=== PATIENT | female | born 1950 | race Caucasian/White ===

== ENCOUNTER → 2017-03-21 14:58 | Outpatient (POV) | payer MEDICARE, SELFPAY | PROVIDERS: Visit Provider Nurse Practitioner Acute Care | DX: Z00.00 Encounter for general adult medical examination without abnormal findings (principal) ==

== ENCOUNTER 2020-08-15 06:09 | Emergency (ER) | payer MEDICARE, SELFPAY ==
--- NOTE | 2020-08-15 06:15 | XR_ITS ---
PROCEDURE INFORMATION: Exam: XR Right Wrist Exam date and time: 08/15/2020 6:15 AM Age: 70 years old Clinical indication: Injury or trauma; Fall; Fracture, traumatic injury; Closed fracture; Wrist; Right TECHNIQUE: Imaging protocol: XR Right wrist. Views: 3 or more views. AP, lateral and oblique views COMPARISON: No relevant prior studies available. FINDINGS: Bones/joints: Comminuted distal radius fracture with dorsal angulation of the distal fracture fragment, fracture may extend into the articular surface of the radiocarpal joint. Mildly displaced ulnar styloid avulsion. The osseous structures are demineralized. Normal alignment of carpal rows. Soft tissues: Normal. IMPRESSION: Distal radius and ulna fractures.
--- NOTE | 2020-08-15 06:16 | XR_ITS ---
PROCEDURE INFORMATION: Exam: XR Right Forearm Exam date and time: 08/15/2020 6:16 AM Age: 70 years old Clinical indication: Injury or trauma; Fall; Fracture, traumatic injury; Closed fracture; Wrist; Right TECHNIQUE: Imaging protocol: XR Right forearm. Views: 2 views. COMPARISON: No relevant prior studies available. FINDINGS: Bones/joints: The osseous structures are demineralized. Distal radius and ulna fractures are detailed under concurrent wrist report. Remainder of the radius and ulna appear intact. The elbow joint is unremarkable. Soft tissues: Edematous at the wrist. IMPRESSION: Distal radius and ulna fractures.
--- NOTE | 2020-08-15 06:22 | XR_ITS ---
PROCEDURE INFORMATION: Exam: XR Right Hand Exam date and time: 08/15/2020 6:22 AM Age: 70 years old Clinical indication: Injury or trauma; Fall; Fracture, traumatic injury; Closed fracture; Wrist; Right TECHNIQUE: Imaging protocol: XR Right hand. Views: 3 or more views. AP, lateral and oblique views COMPARISON: No relevant prior studies available. FINDINGS: Bones/joints: Distal radius and ulna fractures are detailed under concurrent wrist report. The osseous structures are demineralized. Degenerative changes of the 1st interphalangeal joint. No acute fracture or malalignment involving the hand. Soft tissues: Medial soft tissue edema at the wrist. IMPRESSION: Distal radius and ulna fractures.
[2020-08-15 06:23] VITALS: BP 174/94; PULSE 96; RESP 18; TEMP 36.9; O2SAT 96; BMI 17.6
--- NOTE | 2020-08-15 06:58 | HMH.EDUPEXT ---
ED Disposition Clinical Impression: Fracture of wrist Qualifiers: Encounter type: initial encounter Fracture type: closed Laterality: right Qualified Code(s): S62.101A - Fracture of unspecified carpal bone, right wrist, initial encounter for closed fracture Disposition: Home, Self-Care Condition on Discharge: Good Instructions: DI for Wrist Fracture Additional Instructions: wear splint and call ortho this am Referrals: Alfonso Dumont MD [Primary Care Provider] - Alan Valdez MD [Staff Physician] - - Critical Care Critical Care Time: No Attestation: On 08/15/20, the high probability of a clinically significant, sudden or life threatening deterioration of the following system(s) required my full and direct attention, intervention and personal management. The time I documented below is in addition to time spent performing reported procedures but includes the following listed in this critical care notation. Medical Decision Making - Medical Records Medical records reviewed: Yes: I reviewed the patient's medical records. - Devyn Inquiry Pt receiving controlled substance: No Vital Signs: 08/15/20 06:23 Temperature 98.5 F Temperature Source Oral Pulse Rate [Left] 96 H Respiratory Rate 18 Blood Pressure [Left Arm] 174/94 H Blood Pressure Mean [Left Arm] 120 Blood Pressure Source [Left Arm] Automatic Cuff Blood Pressure Position [Left Arm] Sitting 02 Sat by Pulse Oximetry 96 Oxygen Delivery Method Room Air - Lab Data Lab results reviewed: Yes: I reviewed the patient's lab results. Orders (Tests/Meds): ORDERS Category Date Time Status XR forearm RT 2V Stat Exams 08/15/20 06:16 Taken XR hand RT min 3V Stat Exams 08/15/20 06:22 Taken XR wrist RT min 3V Stat Exams 08/15/20 06:15 Taken - Radiology Data #1 Image(s): Forearm, Wrist, Hand Image Reviewed: Yes I reviewed the patient's radiology image Preliminary Findings: Abnormal Upper Extremity HPI - General Chief Complaint: Extremity Injury, Upper Stated Complaint: AO 08/15/20 03:00 injury right wrist Time Seen by Provider: 08/15/20 06:45 Mode of Arrival: Ambulatory Source of Information: Patient, Medical Record Limitations: No Limitations Description of Symptoms (Recalled from ER Triage Doc. by RN): Pt states she tripped and fell going to bathroom this AM and stopped herself with her right hand, pt has pain with deformity to right wrist. Pt denies head injury or LOC. Pulses and Cap refill WNL. Pt able to move all fingers, but not without pain. - History of Present Illness HPI narrative: trip injury this am with rt wrist injury complaint: injury to: right, wrist Onset (ago): hour(s) Other Extremity Injury: Right: wrist Other injuries: none Handedness: right Place: home Severity: moderate Context: fall Associated symptoms: denies other symptoms - Related Data Home Medications Medication Instructions Recorded Confirmed Amlodipine Besylate [Norvasc 5mg 5 mg PO DAILY 10/20/17 10/20/17 tablet] Buspirone HCl [Buspar 10mg 10 mg PO DAILY 10/20/17 10/20/17 tablet] Folic Acid [Folic Acid 1mg tablet] 1 mg PO DAILY 10/20/17 10/20/17 carvediloL [Carvedilol 12.5mg Tab] 12.5 mg PO DAILY 10/20/17 10/20/17 metHOTREXate sodium [metHOTREXate 2.5 mg PO DAILY 10/20/17 10/20/17 2.5mg Tablet] Previous Rx's Medication Instructions Recorded Amoxicillin/Potassium Clav 500 mg PO BID #20 tab 10/20/17 [Augmentin 500mg tab] Allergies Allergy/AdvReac Type Severity Reaction Status Date / Time atorvastatin [From LIPITOR] Allergy Mild Verified 10/20/17 13:33 hydrocodone [From LORTAB] Allergy Mild Verified 10/20/17 13:33 rosuvastatin [From CRESTOR] Allergy Unknown NA-SLEEPY Verified 10/20/17 13:33 sulfamethoxazole Allergy Unknown Verified 10/20/17 13:33 [From BACTRIM] trimethoprim [From BACTRIM] Allergy Unknown Verified 10/20/17 13:33 [facility] History - Hepatitis A Screen Drug use history?: No
[2020-08-15 07:18] VITALS: BP 168/92; PULSE 92; RESP 18; TEMP 36.9; O2SAT 96
== END 2020-08-15 07:25 | disposition home or self-care (01) ==
PROVIDERS: Emergency Provider Emergency Medicine; PCP Family Medicine
DX: S52.501A Unspecified fracture of the lower end of right radius, initial encounter for closed fracture (principal); S52.601A Unspecified fracture of lower end of right ulna, initial encounter for closed fracture; W01.0XXA Fall on same level from slipping, tripping and stumbling without subsequent striking against object, initial encounter; Y92.019 Unspecified place in single-family (private) house as the place of occurrence of the external cause; F17.210 Nicotine dependence, cigarettes, uncomplicated
CPT/HCPCS: 29125; 73090; 73110; 73130; 99282

== ENCOUNTER 2021-08-01 13:52 | Observation (INO) | payer MEDICARE, OTHER, SELFPAY ==
[2021-08-01] VITALS (29 sets, daily range): BP systolic 88–122; BP diastolic 38–69; PULSE 63–104; RESP 14–26; TEMP 36.4–37.1; O2SAT 97–100; BMI 21.4; BMI 35.8
--- NOTE | 2021-08-01 13:52 | ECG_ITS ---
APPROVED REPORT Exam: Resting ECG HR:69 bpm ECG Measurements Heart Rate 69 AXES OK 149 P 50 QRSd 80 QRS 33 QT 421 T 39 QTc 440 Conclusion SINUS RHYTHM NORMAL ECG UNCONFIRMED REPORT Electronically signed by : Krystian Edwards MD 08/03/2021 09:40:54
--- NOTE | 2021-08-01 14:12 | HMH.EDGENADL ---
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 The time I documented below is in addition to time spent performing reported procedures but includes the following listed in this critical care notation. Total Critical Care Time: 60 Vital system(s) involved:: Shock (Hemorrhage) My critical care processes included: Assessment & monitoring of V/S, Initial and Re-exams, Data Review/Interpretation, Coordinating Care, Medication Orders and management, Documentation Medical Decision Making - Devyn Inquiry Pt receiving controlled substance: No Vital Signs: 08/01/21 13:47 08/01/21 13:55 08/01/21 14:06 Temperature 98.7 F Temperature Source Rectal Pulse Rate Pulse Rate [Radial] 75 Respiratory Rate 26 H 18 18 TAR Vitals Timing Blood Pressure 94/57 L 105/55 L Blood Pressure [Right Arm] 94/57 L Blood Pressure Mean 66 69 Blood Pressure Mean [Right Arm] 69 Blood Pressure Position Blood Pressure Position [Right Arm] Sitting 02 Sat by Pulse Oximetry 97 Oxygen Delivery Method Nasal Cannula Oxygen Flow Rate (LPM) 3 08/01/21 15:23 08/01/21 15:30 08/01/21 15:49 Temperature Temperature Source Pulse Rate Pulse Rate [Radial] Respiratory Rate 16 15 16 TAR Vitals Timing Blood Pressure 94/44 L 103/46 L 98/40 L Blood Pressure [Right Arm] Blood Pressure Mean 52 64 69 Blood Pressure Mean [Right Arm] Blood Pressure Position Blood Pressure Position [Right Arm] 02 Sat by Pulse Oximetry 100 Oxygen Delivery Method Nasal Cannula Oxygen Flow Rate (LPM) 3 08/01/21 16:22 08/01/21 16:52 08/01/21 18:00 Temperature Temperature Source Pulse Rate 80 72 74 Pulse Rate [Radial] Respiratory Rate 17 15 16 TAR Vitals Timing Blood Pressure 101/44 L 100/41 L 108/53 L Blood Pressure [Right Arm] Blood Pressure Mean 61 56 67 Blood Pressure Mean [Right Arm] Blood Pressure Position Blood Pressure Position [Right Arm] 02 Sat by Pulse Oximetry 100 100 100 Oxygen Delivery Method Nasal Cannula Nasal Cannula Oxygen Flow Rate (LPM) 3 3 08/01/21 18:30 08/01/21 18:47 08/01/21 18:54 Temperature 98.7 F Temperature Source Oral Pulse Rate 66 64 68 Pulse Rate [Radial] Respiratory Rate 14 16 20 TAR Vitals Timing Pre-Blood Vitals Start Vitals Blood Pressure 99/54 L 98/53 L Blood Pressure [Right Arm] Blood Pressure Mean 69 68 Blood Pressure Mean [Right Arm] Blood Pressure Position Sitting Sitting Blood Pressure Position [Right Arm] 02 Sat by Pulse Oximetry 100 98 100 Oxygen Delivery Method Nasal Cannula Oxygen Flow Rate (LPM) 3 08/01/21 18:58 08/01/21 19:03 08/01/21 19:15 Temperature Temperature Source Pulse Rate 63 104 H 69 Pulse Rate [Radial] Respiratory Rate 18 18 18 TAR Vitals Timing Blood Pressure 95/52 L 108/66 L 111/69 Blood Pressure [Right Arm] Blood Pressure Mean 66 80 83 Blood Pressure Mean [Right Arm] Blood Pressure Position Blood Pressure Position [Right Arm] 02 Sat by Pulse Oximetry 100 100 100 Oxygen Delivery Method Oxygen Flow Rate (LPM) 08/01/21 19:23 08/01/21 19:38 08/01/21 19:51 Temperature Temperature Source Pulse Rate 70 66 70 Pulse Rate [Radial] Respiratory Rate 18 16 16 TAR Vitals Timing Blood Pressure 106/65 L 109/67 L 113/63 Blood Pressure [Right Arm] Blood Pressure Mean 78 81 79 Blood Pressure Mean [Right Arm] Blood Pressure Position Blood Pressure Position [Right Arm] 02
--- NOTE | 2021-08-01 14:17 | XR_ITS ---
PROCEDURE INFORMATION: Exam: XR Chest Exam date and time: 08/01/2021 2:20 PM Age: 71 years old Clinical indication: Shortness of breath; Additional info: Weakness, SOA TECHNIQUE: Imaging protocol: XR of the chest. Views: 1 view. COMPARISON: CR CXR CHEST(2 VIEWS-NOT PORTABLE) 09/09/2016 7:51 PM FINDINGS: Airway: Patent Lungs: COPD/emphysema is appreciated. Mild pulmonary emphysema. Diffuse chronic interstitial prominence. No acute interstitial or airspace disease. Pleural spaces: Unremarkable. No pleural effusion. No pneumothorax. Heart/Mediastinum: The heart is moderately enlarged. Vasculature: Calcified aortic knob. Bones/joints: No acute skeletal abnormality or aggressive osseous lesion. Multilevel kyphoplasty changes in the thoracic spine. IMPRESSION: 1. No acute thoracic pathology. 2. Consider COPD exacerbation in the appropriate clinical setting.
--- NOTE | 2021-08-01 14:17 | PC.NURSE ---
Rn and Tech in room getting pt settled, urine, labs, vitals, triage
--- NOTE | 2021-08-01 14:19 | PC.NURSE ---
patient used bedpan and had a dark colored bowel movement
[2021-08-01 14:22] LABS: Occult Blood,Stool Positive (Negative)
--- NOTE | 2021-08-01 14:37 | PC.NURSE ---
Bella with lab at
[2021-08-01 15:17] LABS: Coronavirus 19, PCR Not Detected (NotDetected); Influenza A, PCR Not Detected (NotDetected); Influenza B, PCR Not Detected (NotDetected)
[2021-08-01 15:24] LABS: Basophils # 0.1 K/mm3 (0-0.2); Basophils % 1.3 % (0.1-2.0); Eosinophils # 0.1 K/mm3 (0.0-0.4); Eosinophils % 0.6 % (0.1-12.0); Hematocrit 26.1 % (37.0-47.0); Hemoglobin 8.1 g/dL (12.2-16.2); Lymphocytes # 1.1 K/mm3 (0.7-4.5); Mean Corpuscular HGB Conc 30.9 g/dL (31.8-35.4); Mean Corpuscular Hemoglobin 31.9 pg (27.0-31.2); Mean Corpuscular Volume 103.2 fl (81-99); Mean Platelet Volume 13.1 fl (7.4-10.4); Monocytes # 0.4 K/mm3 (0.1-1.0); Monocytes % 4.2 % (1.7-9.3); Neutrophils # 7.7 K/mm3 (1.8-7.8); Red Blood Count 2.53 M/mm3 (4.20-5.40); Red Cell Distribution Width 17.3 % (11.5-17.5); White Blood Count 9.4 K/mm3 (4.8-10.8)
[2021-08-01 15:33] LABS: Platelet Count 26 K/mm3 (142-424)
--- NOTE | 2021-08-01 15:37 | CT_ITS ---
PROCEDURE INFORMATION: Exam: CT Abdomen And Pelvis Without Contrast Exam date and time: 08/01/2021 6:13 PM Age: 71 years old Clinical indication: Nausea and vomiting; Additional info: Abd pain/ gi bleed seen in stool // she was given oral contrast-- we waited 1 1/2 hours since given and there was still some in the stomach but not much in her bowel - 30ml gastrograffin given. TECHNIQUE: Imaging protocol: Computed tomography of the abdomen and pelvis without contrast. Radiation optimization: All CT scans at this facility use at least one of these dose optimization techniques: automated exposure control; mA and/or kV adjustment per patient size (includes targeted exams where dose is matched to clinical indication); or iterative reconstruction. Other contrast: Oral, gastrograffin , 30ml; COMPARISON: ABDPELW CT ABD PELVIS W/ CONTRAST 02/26/2016 9:49 AM FINDINGS: Lungs: Mild scarring and atelectasis in the lower lungs. Mild centrilobular emphysema. Heart: Small pericardial effusion. Coronary artery calcifications. Liver: Interval development of innumerable hepatic masses. Gallbladder and bile ducts: Gallbladder is absent. Pancreas: There appears to be a mass lesion in the pancreatic groove. Spleen: Normal. No splenomegaly. Adrenal glands: Normal. No mass. Kidneys and ureters: Normal. No hydronephrosis. Stomach and bowel: Mild sigmoid diverticulosis without diverticulitis. Appendix: No evidence of appendicitis. Intraperitoneal space: There are peritoneal nodules in the anterior abdomen example image 57 series 3. These could be abnormal lymph nodes or omental metastases. 15 mm nodule image 58 series 3, 7 mm and 9 mm peritoneal deposits on image 57 series 3. Vasculature: Unremarkable. No abdominal aortic aneurysm. Lymph nodes: Unremarkable. Urinary bladder: Unremarkable as visualized. Reproductive: Status post hysterectomy. Bones/joints: T12 kyphoplasty. Soft tissues: Unremarkable. IMPRESSION: 1. There appears to be a mass lesion in the pancreatic groove. Pancreatic primary malignancy is more likely than duodenal. 2. Soft tissue nodules in the omentum are worrisome for peritoneal metastatic disease. 3. Interval development of innumerable hepatic masses. This is worrisome for metastatic disease. 4. Small pericardial effusion.
[2021-08-01 15:39] LABS: Chloride 102 mmol/L (98-107); Sodium 139 mmol/L (136-145)
[2021-08-01 15:42] LABS: Alanine Aminotransferase 49 U/L (12-78); Alkaline Phosphatase 219 U/L (38-126); Aspartate Amino Transferase 109 U/L (14-36); Bilirubin,Total 0.9 mg/dl (0.2-1.3); Blood Urea Nitrogen 31 mg/dl (7-17); Calcium 8.4 mg/dl (8.4-10.2); Creatinine Clearance Estimated 41 mL/min (50-200); Estimated Glomerular Filt Rate 49 ml/min (>60); GFR (African American) 59 ML/MIN (>60); Glucose 174 mg/dl (74-100); Lipase 151 U/L (23-300)
[2021-08-01 15:43] LABS: Albumin Level 2.8 g/dl (3.5-5.0); Albumin/Globulin Ratio 1.2 (1.1-1.8); Globulin 2.3 g/dL (1.3-3.2); Total Protein,Serum 5.1 g/dl (6.3-8.2)
--- NOTE | 2021-08-01 15:46 | PC.NURSE ---
Dr. Hamilton speaking with Dr. Edwards
--- NOTE | 2021-08-01 16:15 | PC.NURSE ---
Spouse at BS
[2021-08-01 16:34] LABS: Carbon Dioxide 26 mmol/L (22.0-30.0)
--- NOTE | 2021-08-01 16:45 | HMH.ITSTN ---
called when order put in- CT is with oral contrast only. Spoke to Mariella and they are giving her the contrast to drink at 3:37pm and are to call when finished. We called to check if she was done at 4:15pm spoke to Mariella again and she was about half way done. Called at 4:40 and Mariella called me back said she just drank the last of it at 4:45pm, I advised we will scan her in 1 1/2 hours per protocol. Delay due to patient drinking contrast.
--- NOTE | 2021-08-01 17:16 | PC.NURSE ---
ED MD at speaking with patient and family regarding POC update
--- NOTE | 2021-08-01 18:00 | PC.NURSE ---
ED MD at speaking with patients spouse regarding POC
--- NOTE | 2021-08-01 18:12 | PC.NURSE ---
patient to CT with fork lift technician by dali
--- NOTE | 2021-08-01 18:17 | PC.NURSE ---
pt returned from CT with product support technician by dali
--- NOTE | 2021-08-01 18:35 | PC.NURSE ---
Christen Adam, RN at
[2021-08-01 18:36] LABS: Troponin I 0.34 ng/ml (0.00-0.034)
[2021-08-01 18:43] LABS: Activated Partial Thrombo Time 38.2 seconds (22.8-30.6)
[2021-08-01 18:44] LABS: INR > 8.00 (0.9-1.1)
--- NOTE | 2021-08-01 18:57 | PC.NURSE ---
ED doctor on phone with Dr. Edwards
--- NOTE | 2021-08-01 19:13 | PC.NURSE ---
ED doctor on phone with Dr. Edwards
--- NOTE | 2021-08-01 19:20 | PC.NURSE ---
spoke with Prema at [facility], there are no beds, patient was placed on waiting list. Hospitalist will call back
--- NOTE | 2021-08-01 19:30 | PC.WOUNDNOTE ---
spoke with Seble @ [facility] hospitalist to call back, no bed available at this time but will be put on wait list
--- NOTE | 2021-08-01 19:51 | PC.NURSE ---
ED doctor on phone with [facility]
--- NOTE | 2021-08-01 20:10 | PC.NURSE ---
lab staff called platelets are ready, first unit of blood is transfusing
--- NOTE | 2021-08-01 21:14 | PC.NURSE ---
patient up to floor via stretcher @ this time.
[2021-08-02] VITALS (17 sets, daily range): BP systolic 92–115; BP diastolic 47–68; PULSE 69–110; RESP 12–18; TEMP 36.3–36.7; O2SAT 90–100
[2021-08-02 04:29] LABS: Basophils # 0.1 K/mm3 (0-0.2); Basophils % 1.2 % (0.1-2.0); Eosinophils # 0.1 K/mm3 (0.0-0.4); Eosinophils % 0.5 % (0.1-12.0); Hematocrit 35.5 % (37.0-47.0); Lymphocytes # 1.4 K/mm3 (0.7-4.5); Lymphocytes % 14.3 % (10-50); Mean Corpuscular Hemoglobin 31.7 pg (27.0-31.2); Mean Corpuscular Volume 95.9 fl (81-99); Mean Platelet Volume 12.1 fl (7.4-10.4); Monocytes # 0.4 K/mm3 (0.1-1.0); Monocytes % 4.6 % (1.7-9.3); Neutrophils # 7.5 K/mm3 (1.8-7.8); Neutrophils % 79.4 % (37.0-80.0); Red Cell Distribution Width 17.8 % (11.5-17.5); White Blood Count 9.4 K/mm3 (4.8-10.8)
[2021-08-02 04:38] LABS: Chloride 105 mmol/L (98-107)
[2021-08-02 04:39] LABS: Potassium 3.7 mmoL/L (3.5-5.1); Sodium 141 mmol/L (136-145)
[2021-08-02 04:41] LABS: Hemoglobin 11.7 g/dL (12.2-16.2); Platelet Count 27 K/mm3 (142-424)
[2021-08-02 04:42] LABS: Anion Gap 8.7 mEq/L (5-15); Blood Urea Nitrogen 32 mg/dl (7-17); Calcium 8.3 mg/dl (8.4-10.2); Carbon Dioxide 31 mmol/L (22.0-30.0); Creatinine Clearance Estimated 58 mL/min (50-200); Estimated Glomerular Filt Rate 40 ml/min (>60); GFR (African American) 49 ML/MIN (>60); INR 1.48 (0.9-1.1); Prothrombin Time 16.2 seconds (10.1-12.5)
[2021-08-02 04:55] LABS: Glucose 126 mg/dl (74-100)
--- NOTE | 2021-08-02 07:54 | PC.NURSE ---
Pt tolerated blood and platelet transfusion. BP has been soft. Pt has remained on 2-3L O2 NC this shift. She is on 2L O2 NC at home. Has c/o nausea x1 and chronic back pain. Family has remains at bedside. Pt states she doesn't know if she wants to move aggressively with care. Pt remains on wait list at [facility] and . No other concerns. Will continue to monitor.
--- NOTE | 2021-08-02 11:36 | HMH.PHAINT ---
MEDICATION RECONCILIATION COMPLETED ON PATIENT USING EXTERNAL FILL HISTORY FROM PHARMACY.
--- NOTE | 2021-08-02 11:39 | HMH.PHAVTE ---
[facility] Pharmacy VTE Monitoring - Patient Demographics Admission date: 08/01/21 Report Date: 08/02/21 Time: 11:39 Allergies/Adverse Reactions: Patient Allergies atorvastatin [From LIPITOR] Allergy (Mild, Verified 10/20/17 13:33) hydrocodone [From LORTAB] Allergy (Mild, Verified 10/20/17 13:33) rosuvastatin [From CRESTOR] Allergy (Unknown, Verified 10/20/17 13:33) NA-SLEEPY sulfamethoxazole [From BACTRIM] Allergy (Unknown, Verified 10/20/17 13:33) trimethoprim [From BACTRIM] Allergy (Unknown, Verified 10/20/17 13:33) Height: 1.63 m Weight: 95.2 kg Patient Problems: Current Active Problems 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 (Acute) Coagulopathy (Acute) Upper gastrointestinal bleed (Acute) Thrombocytopenia (Acute) Hypokalemia (Acute) Hemorrhagic shock (Acute) - VTE Risk Labs: VTE Related Lab Results Hgb 11.7 g/dL (12.2-16.2) L D 08/02/21 04:20 Hct 35.5 % (37.0-47.0) L 08/02/21 04:20 Plt Count 27 K/mm3 (142-424) L* 08/02/21 04:20 PT 16.2 seconds (10.1-12.5) H 08/02/21 04:20 INR 1.48 (0.9-1.1) H 08/02/21 04:20 APTT 38.2 seconds (22.8-30.6) H 08/01/21 17:58 BUN 32 mg/dl (7-17) H 08/02/21 04:20 Creatinine 1.30 mg/dl (0.52-1.04) H 08/02/21 04:20 Estimated Creat Clear 58 mL/min (50-200) 08/02/21 04:20 VTE Risk Level: Moderate Risk - Prophylaxis VTE Prophylaxis Ordered?: Yes Types of VTE Prophylaxis: TEDS Knee High Location of Applied Device: Bilateral Lower Extremeties
--- NOTE | 2021-08-02 13:52 | HMH.HP ---
*Admission Date: 08/01/21 *Chief complaint: Weakness and fatigue *History of present illness: 71-year-old white female who normally sees Dr. Dumont, it has not seen him for 3 to 4 years, who over the past 2 months has had increasing problems with weight loss, fatigue, abdominal pain and anorexia. This started in April. In March she saw her bag turner, Dr. Aragon at [facility] and she reported that he was happy with her blood pressure and labs. In April she began to have the symptoms. She had a syncopal episode on the admission and came to the emergency department. I appreciate thorough ER work-up and documentation -- briefly, patient found to have pancreas mass and signs and symptoms consistent with widespread metastasis into liver and omentum, coagualopathy, anemia and thrombocytopenia ER work-up involved discussing case with tertiary care center but family in the meantime decided that given the poor prognosis of disease they would opt for no treatment and we elected to admit her to [facility] for stabilization, hospice consultation and further evaluation as indicated. [facility] History I have reviewed the patient's past medical history: Yes Medical History: Reports:: Hypertension Denies:: Cancer, Diabetes Mellitus Type 1, Diabetes Mellitus Type 2, Internal Pacemaker, MRSA *Have you ever received a pneumonia vaccine?: No *Have you received a flu vaccine this season?: No Other Medical History: Reports: Anemia Other Surgeries: Yes: Cholecystectomy, Hysterectomy-Total. No: Pacemaker - *Social History Smoking Status: Current every day smoker Tobacco Type: cigarettes # Packs/Day (cigarettes): 1 Alcohol Intake: never *Occupational Status:: retired *Travel in the last 8 weeks: None Family Hx:: Anemia, Bleeding Disorder, Cancer, Heart Attack, Hypertension, Stroke Review of Systems - Review of Systems Review of systems:: pertinent systems reviewed and negative unless documented below - Constitutional Reports anorexia, Reports fatigue, Reports lack of energy, Reports malaise, Reports weight loss - *Musculoskeletal Reports back pain, Reports body aches, Reports neck pain - *Neurologic Reports weakness, Denies localized weakness, Denies numbness Meds Home Medications Medication Instructions Recorded Confirmed Type Amlodipine Besylate [Norvasc 5mg 5 mg PO DAILY 10/20/17 08/02/21 History tablet] carvediloL [Carvedilol 12.5mg Tab] 12.5 mg PO BID 10/20/17 08/01/21 History Aspirin [Aspirin 81mg chewable 81 mg PO DAILY 08/01/21 08/01/21 History tab] Allergies Allergy/AdvReac Type Severity Reaction Status Date / Time atorvastatin [From LIPITOR] Allergy Mild Verified 10/20/17 13:33 hydrocodone [From LORTAB] Allergy Mild Verified 10/20/17 13:33 rosuvastatin [From CRESTOR] Allergy Unknown NA-SLEEPY Verified 10/20/17 13:33 sulfamethoxazole Allergy Unknown Verified 10/20/17 13:33 [From BACTRIM] trimethoprim [From BACTRIM] Allergy Unknown Verified 10/20/17 13:33 Exam Vital signs and Labs for Last 24 Hours: Temp Pulse Resp BP Pulse Ox 97.7 F 95 H 16 106/55 L 96 08/02/21 12:00 08/02/21 12:00 08/02/21 12:00 08/02/21 12:00 08/02/21 12:00 Laboratory Results - last 24 hr 08/01/21 14:05: Stool Occult Blood Positive A 08/01/21 15:05: WBC 9.4, RBC 2.53 L, Hgb 8.1 L, Hct 26.1 L, MCV 103.2 H, MCH 31.9 H, MCHC 30.9 L, RDW 17.3, Plt Count 26 L*, MPV 13.1 H, Neut % (Auto) 82.0 H, Lymph % (Auto) 12.0, [place] % (Auto) 4.2, Eos % (Auto) 0.6, Baso % (Auto) 1.3, Neut # (Auto) 7.7, Lymph # (Auto) 1.1, [place] # (Auto) 0.4, Eos # (Auto) 0.1, Baso # (Auto) 0.1 08/01/21 15:05: Sodium 139, Potassium 3.0 L, Chloride 102, Carbon Dioxide 26, Anion Gap 14.0, BUN 31 H, Creatinine 1.10 H, Estimated Creat Clear 41, Estimated GFR 49 L, Est GFR ( Amer) 59, Glucose 174 H, Calcium 8.4, Total Bilirubin 0.9, AST 109 H, ALT 49, Alkaline Phosphatase 219 H, Troponin I 0.30 H, Total Protein 5.1 L,
--- NOTE | 2021-08-02 18:04 | PC.NURSE ---
Morphine given for pain, pt tolerated well. Zofran given for nausea, pt tolerated well. VS stable and patient on 2LNC by end of shift. Oxygen was turned up to 4LNC in AM after patient was back in bed from using bedside commode for comfort. Patient able to be weaned throughout the day. [facility] updated twice about patient's condition. Patient stated she wanted to go home, hospice team consulted. No further complaints.
--- NOTE | 2021-08-02 20:23 | PC.NURSE ---
Received information that Pt was accepted for a bed at [facility]. Spoke with Bebeto and Hanh (Pt) and they both stated that Pt did not want to be transferred. Bebeto stated She told me that she did not want to be poked and have to go through all those treatments. If they send her there she will refuse everything. I would rather her stay there ([facility]). Spoke with Hanh she said I don't want to go. I want to stay here and be comfortable. I do not want any treatment. Hospice is coming tomorrow and I want to talk to them. Called [facility] at [phone] and notified them of the Pt's wishes. They stated Ok, I will let the charge nurse know. Notified [facility] charge nurse of Pts wishes as well. Notified Dr. Bell of Pts refusal. Still waiting for hospice to eval and admit at this time. No new orders at this time.
--- NOTE | 2021-08-03 07:47 | HMH.ACPN2 ---
Internal Medicine - PN: Subj *Date: 08/03/21 *Time: 07:47 Interval history: Patient feels worse today, and has had some intractable retching with biliary emesis. Lots of pain throughout her body especially in her thoracic back area. Exam Vital signs and Labs for Last 24 Hours: Temp Pulse Resp BP Pulse Ox 98.0 F 96 H 12 101/56 L 95 08/02/21 20:00 08/02/21 20:00 08/02/21 20:00 08/02/21 20:00 08/02/21 20:00 I & O for Last 24 hours: Intake & Output 07/31/21 08/01/21 08/02/21 08/03/21 11:59 11:59 11:59 11:59 Intake Total 760 / 760 1899 / 1899 Output Total 0 / 0 350 / 350 Balance 760 / 760 1549 / 1549 Weight 209 lb 14.081 oz Narrative: Patient is alert, appears anxious. Frail, poor air movement. Heart rate tachycardic. Abdomen soft, lots of diffuse pain with abdominal palpation. Extremities are cold in her hands and feet. 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 Hospice evaluation today to discuss further management, really placement may be an issue, patient has wished to go home but currently feels so badly that she is not sure she can. I will increase morphine doses, add Phenergan, Reglan for retching and Ativan for anxiety.
[2021-08-03 08:00] VITALS: BP 89/60; PULSE 110; RESP 6; RESP 8; TEMP 36.3; O2SAT 95
--- NOTE | 2021-08-03 08:57 | PC.NURSE ---
Pt c/o pain and is dry heaving. PRN phenergan and PRN morphine administered
[2021-08-03 12:17] VITALS: BMI 35.8
--- NOTE | 2021-08-03 15:56 | PC.NURSE ---
Contacted Hospice interventional radiology tech number to see when Hospice nurse was coming for consult. Awaiting call back from interventional radiology tech nurse.
--- NOTE | 2021-08-03 16:26 | PC.NURSE ---
Addendum entered by Iram Ross RN 08/03/21 16:33: In addition, pt has had 10-15 seconds of intermittent apnea this shift. Bilat knees are mottled as well. Original Note: 1106- Notified MD Solomon, oncall for MD Edwards of pt c/o pruritus, no erythema noted. TO for solu-medrol 80mg q8h PRN for pruritus. Orders carried out. Upon reassessment, pt no longer c/o pruritus. 1523- Notified MD Solomon of pt increase in secretions. TO for robinul and levsin given. Robinul IV administered, upon reassessment secretions have lessened but are still there. Will continue to monitor. Pt remains on 6LNC. o2 sats anywhere between 85-90%. Pt RR between 5-8 breaths per minute. Pt has been a q2h turn and has received PRN oral care. Pt is very delayed w/ responses but will answer questions w/ a yes or no . Pupils are pinpoint, but reactive. Bloody emesis at the beginning of this shift, PRN phenergan administered and it has subsided. Pt's abd is tender, bowel sounds active, but no BM noted. PRN morphine given per MAR for pain. Family remains at bedside, courtesy cart brought up for family. Still awaiting call back from on-call Hospice nurse. Will continue to monitor.
--- NOTE | 2021-08-03 16:45 | PC.NURSE ---
Hospice at bedside speaking to family
--- NOTE | 2021-08-03 18:46 | PC.NURSE ---
Per Katiana RN @ N- pt will be admitted as inpatient hospice. Stock Raiser notified. MD Edwards notified as well
[2021-08-03 20:12] VITALS: BP 84/57; PULSE 113; RESP 12; TEMP 36.8; O2SAT 94
--- NOTE | 2021-08-04 05:12 | HMH.DEATH ---
Pronouncement Note - Date and Time of Date of : 08/04/21 Time of : 05:00 - Additional Data Confirmation of : no pulse, no respirations, no heart sounds Family: at bedside Attending/PCP notified?: Yes Attending physician: Krystian Edwards MD Was code activated?: No Autopsy requested?: No worker's compensation claims examiner notified?: No Organ bank notified?: Yes Advance directives: Yes
--- NOTE | 2021-08-04 06:14 | PC.NURSE ---
Pt family called out to nurse at approx. 0450 I think that she is not breathing. Assessed Pt and did not appear to be breathing. Called Dr. Williamson and he pronounced at 0500 TOD. was called and he stated We want to use [facility]. Gary called and all information given. . [facility] notified of need to picker/puller the body. Dr. Solomon Notified of the . [facility] notified of the . Charge and Tour Agent notified as well. Post mortem care performed. Awaiting home at this time.
--- NOTE | 2021-08-05 08:17 | HMH.DEADDC ---
Discharge Sum: Prov - Provider Primary care physician: Alfonso Dumont MD Visit Care Team Role Provider Type Alfonso Dumont MD Primary Care Provider Referring Peter Hamilton MD Emergency Provider ER Physician Krystian Edwards MD Admit Provider Staff Physician Attending Provider Admitting clinician: Krystian Edwards Discharge Sum: Summary - Date and Time Date of admission: 08/01/21 21:07 Date of : 08/04/21 Time of : 05:00 - Hospital Course prior to Hospital Course Information: Patient was admitted for severe coagulopathy, anemia, thrombocytopenia and elevated INR. 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 Patient is apparently been symptomatic for 3 months. After discussion with patient and her family they did not wish transfer to tertiary care center for oncology evaluation and decided to treat symptoms palliatively. She was admitted, and 2 units of packed cells were given along with 1 unit of platelets which stopped her bleeding and enable her to feel better over the next 48 hours. After discussions with her, her and family hospice was consulted. They saw patient on August 03, because of her decline precipitously over the 24 hours in the hospital, including increasing pain, increasing gastric motility, ongoing vomiting, etc., she was recommended to continue inpatient hospice care here. This was done. Patient had a rapid and stepwise decline and from her illness on August 04 at 5 AM. In accordance with her family's wishes no aggressive resuscitative measures were undertaken. - Additional Data Confirmation of as documented by pronouncing clinician: no pulse Family: at bedside Attending/PCP notified?: Yes Attending physician: Krystian Edwards MD Was code activated?: No Autopsy requested?: No health claims examiner notified?: No Organ bank notified?: Yes Advance directives: Yes Hospice patient?: Yes
== END 2021-08-04 07:00 | disposition expired ==
LOC: ER 19:36 → 2ND 20:39
PROVIDERS: Admitting Provider Internal Medicine Adolescent Medicine; Emergency Provider Emergency Medicine; PCP Family Medicine; Visit Provider Internal Medicine Adolescent Medicine
DX: C25.9 Malignant neoplasm of pancreas, unspecified (principal); C79.9 Secondary malignant neoplasm of unspecified site; E87.6 Hypokalemia; R57.8 Other shock; D69.6 Thrombocytopenia, unspecified; Z20.822 Contact with and (suspected) exposure to COVID-19; I10 Essential (primary) hypertension; F17.210 Nicotine dependence, cigarettes, uncomplicated
CPT/HCPCS: 36415; 71045; 74176; 80048; 80053; 82272; 83690; 84484; 85025; 85610; 85730; 86850; 93005; 96375; 96376; 99285; C9803; G0328; G0378; J2405; P9016; P9034; U0003; U0005